=== PATIENT | female | born 1940 | race Caucasian/White ===

== ENCOUNTER → 2017-07-16 | Outpatient (CLI) | payer MEDICARE ==
[2017-07-16 11:45] VITALS: BP 113/73; PULSE 60; RESP 16; TEMP 98; BMI 30.4
--- NOTE | 2017-07-16 14:04 | P.HPOB ---
History of Present Illness H&P Date: 07/16/17 Chief Complaint: The patient is here for her routine gynecologic exam and mammogram. This is a 76-year-old with an LMP of 1998. The patient is without gynecologic complaints and denies any postmenopausal bleeding. Review of Systems The patient has lost about 6 pounds over the last year. She denies respiratory , cardiac, or G.I. problems. She denies maltreatment or falling. : she has occasional slight urinary leakage with coughing or sneezing. Past Medical History Past Medical History: Atrial Fibrillation, Hyperlipidemia Additional Past Medical History / Comment(s): History of multiple brain aneurysms in a status post multiple surgeries for this. Also history of arthritis and osteoporosis. She has used multiple medications including Fosamax , Forteo and Reclast for the osteoporosis over a number of years. 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 Additional Past Surgical History / Comment(s): Aneurysm repair times four. colonoscopy in 2006 and this was her 2nd one. "Amulet" filter placed for CVA prevention 05/2017. Past Psychological History: No Psychological Hx Reported Smoking Status: Former smoker (Quit 2006.) Past Alcohol Use History: Occasional (About 4 per week) Past Drug Use History: None Reported Additional History: She has been a since 2006 and is not sexually active. - Past Family History Mother Family Medical History: Diabetes Mellitus Father Family Medical History: Cancer (Prostate) Additional Family Medical History / Comment(s): He paternal uncle had colon cancer and a paternal aunt had breast cancer. Medications and Allergies Home Medications Medication Instructions Recorded Confirmed Type Aspirin [Adult Low Dose Aspirin EC] 81 mg PO DAILY 07/16/17 07/16/17 History Julian/D3/Mag11/Zinc/Therapist Physical/Elieser/Bor 1 each PO DAILY 07/16/17 07/16/17 History [Caltrate 600+D Plus Tablet] Calcium Carbonate/Vitamin D3 1 each PO DAILY 07/16/17 07/16/17 History [Caltrate 600 Plus D3 Tablet] Clopidogrel [Plavix] 75 mg PO DAILY 07/16/17 07/16/17 History Diltiazem HCl [Diltiazem 24Hr ER] 180 mg PO Q24H 07/16/17 07/16/17 History Lisinopril [Zestril] 5 mg PO DAILY 07/16/17 07/16/17 History Magnesium 250 mg PO DAILY 07/16/17 07/16/17 History Metoprolol Succinate [Toprol Xl] 50 mg PO DAILY 07/16/17 07/16/17 History Simvastatin [Zocor] 10 mg PO DIRECTED 07/16/17 07/16/17 History Sotalol HCl [Sotalol] 40 mg PO DAILY 07/16/17 07/16/17 History Allergies Allergy/AdvReac Type Severity Reaction Status Date / Time codeine AdvReac Abdominal Verified 07/16/17 14:00 Pain Exam - Vital Signs Vital signs: Vital Signs Temp Pulse Resp BP 07/16/17 11:09 98.0 F 60 16 113/73 Intake and Output 07/15/17 07/16/17 07/16/17 22:59 06:59 14:59 Other: Weight 80.286 kg Height 5'4", BMI 30.4. This is a well-developed well-nourished white female who is alert and oriented times 3 in no acute distress. HEENT: Within normal limits. NECK: Supple without mass or thyromegaly. There are no carotid bruits to auscultation. CHEST AND LUNGS: Clear to auscultation. HEART: Regular rate and rhythm. BREASTS: Are without mass or discharge. AXILLARY EXAM: Negative for adenopathy. BACK: Negative for CVA tenderness. ABDOMEN: Soft, nontender, without palpable masses. PELVIC EXAM: Normal external genitalia with mild to moderate atrophy. Cervix and vagina appear normal to moderate atrophy. There is no unusual discharge. There is no evidence of prolapse. The uterus is midposition, nongravid size and nontender. There are no palpable adnexal masses or tenderness. RECTAL EXAM: divisional exam is negative for mass or tenderness and is negative for occult blood. EXTREMITIES: Nontender. IMPRESSION: 1. 76-year-old menopausal female with normal gynecologic exam. 2. History of osteoporosis status post multiple years of medical treatment with bisphosphonates and Forteo in the past. PLAN: 1. Pap smear was performed. 2. Self breast awareness was discussed. 3. Screening mammogram will be done today. 4. Osteoporosis management was discussed. We will plan on repeating her bone density test in one year. 5. I've recommended screening colonoscopy since it is been about 11 years since her last one. Dr. Noé Hernandez's card was given to the patient since her surgeon who did her previous colonoscopy has retired. 6. She will return in one year.
--- NOTE | 2017-07-18 11:42 | MM ---
Reason for exam: screening (asymptomatic). Last mammogram was performed 1 year and 4 months ago. History: Patient is postmenopausal. Family history of breast cancer in maternal aunt at age 65 and breast cancer in paternal aunt at age 45. Took hormonal contraceptives for 10 years beginning at age 32. Took estrogen for 6 months beginning at age 56. Took progesterone for 6 months beginning at age 56. Physical Findings: A clinical breast exam by your physician is recommended on an annual basis and results should be correlated with mammographic findings. MG 3D Screening Mammo W/Cad Bilateral CC and MLO view(s) were taken. Prior study comparison: March 27, 2016, bilateral MG 3d screening mammo w/cad. January 24, 2015, bilateral MG screening mammo w CAD. There is chronic nodularity in the right breast. No significant changes when compared with prior studies. ASSESSMENT: Negative, BI-RAD 1 RECOMMENDATION: Routine screening mammogram of both breasts in 1 year.
== END | disposition home or self-care (01) ==
LOC: WWCWWP 10:42
PROVIDERS: ATTEND Obstetrics & Gynecology
DX: Z12.31 Encounter for screening mammogram for malignant neoplasm of breast (principal)
CPT/HCPCS: 77063; 77067

== ENCOUNTER → 2019-01-13 | Outpatient (CLI) | payer MEDICARE ==
[2019-01-13 09:39] VITALS: BP 155/74; PULSE 60; RESP 16; TEMP 98; BMI 29.7
--- NOTE | 2019-01-13 10:29 | P.HPOB ---
History of Present Illness H&P Date: 01/13/19 Chief Complaint: The patient is here for her routine gynecologic exam and ma mmogram. This is a 78-year-old with an LMP of 1998. The patient is without gynecologic complaints and denies any postmenopausal bleeding. Review of Systems She has gained about 3 pounds over the last year. She denies respiratory, cardiac and G.I. problems. She denies maltreatment or problems with falling. : Occasional leakage with coughing or sneezing and she does wear a pad. Past Medical History Past Medical History: Atrial Fibrillation, Hyperlipidemia, Hypertension Additional Past Medical History / Comment(s): Multiple brain aneurysms in a status post multiple surgeries for this. In "Amulet" filter study to prevent CVA without anticoag for A-fib. Also history of arthritis and osteoporosis(used multiple medications including Fosamax, Forteo and Reclast for the osteoporosis over 5 years.). 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 History of Any Multi-Drug Resistant Organisms: None Reported Additional Past Surgical History / Comment(s): Aneurysm repair times four. colonoscopy in 2006 and this was her 2nd one. "Amulet" filter placed for CVA prevention 05/2017. Colonoscopy 2006(2nd). Past Psychological History: No Psychological Hx Reported Smoking Status: Former smoker Past Alcohol Use History: Occasional (3 per week) Additional Past Alcohol Use History / Comment(s): Quit smoking 2006. Past Drug Use History: None Reported Additional History: She has been a since 2006 and is not sexually active. - Past Family History Mother Family Medical History: Diabetes Mellitus Father Family Medical History: Cancer Additional Family Medical History / Comment(s): Prostate cancer. He paternal uncle had colon cancer and a paternal aunt had breast cancer. Medications and Allergies Home Medications Medication Instructions Recorded Confirmed Type Aspirin [Adult Low Dose Aspirin EC] 81 mg PO DAILY 07/16/17 01/13/19 History Julian/D3/Mag11/Zinc/Welfare Officer/Elieser/Bor 1 each PO DAILY 07/16/17 01/13/19 History [Caltrate 600+D Plus Tablet] Calcium Carbonate/Vitamin D3 1 each PO DAILY 07/16/17 01/13/19 History [Caltrate 600 Plus D3 Tablet] Diltiazem HCl [Diltiazem 24Hr ER] 180 mg PO Q24H 07/16/17 01/13/19 History Magnesium 250 mg PO DAILY 07/16/17 01/13/19 History Sotalol HCl [Sotalol] 40 mg PO DAILY 07/16/17 01/13/19 History Losartan [Cozaar] 25 mg PO DAILY 01/13/19 01/13/19 History Rosuvastatin [Crestor] 10 mg PO DAILY 01/13/19 01/13/19 History Allergies Allergy/AdvReac Type Severity Reaction Status Date / Time codeine AdvReac Abdominal Verified 01/13/19 09:12 Pain Exam Vital Signs Temp Pulse Resp BP Pulse Ox 01/13/19 09:16 98 F 60 16 155/74 98 Intake and Output 01/12/19 01/13/19 01/13/19 22:59 06:59 14:59 Other: Weight 78.471 kg Height 5 feet 4 inches, weight 173 pounds, BMI 29.7. This is a well-developed well-nourished white female who is alert and oriented times 3 in no acute distress. HEENT: Within normal limits. NECK: Supple without mass or thyromegaly. CHEST AND LUNGS: Clear to auscultation. HEART: Regular rate and rhythm. BREASTS: Are without mass or discharge. AXILLARY EXAM: Negative for adenopathy. BACK: Negative for CVA tenderness. ABDOMEN: Soft, nontender, without palpable masses. PELVIC EXAM: Normal external genitalia with moderate atrophy. Cervix and vagina appear normal moderate atrophy. There is no unusual discharge. There is no evidence of prolapse. The uterus is midposition, nongravid size and nontender. There are no palpable adnexal masses or tenderness. RECTAL EXAM: Rectovaginal exam is negative for mass or tenderness and is negative for occult blood. EXTREMITIES: Nontender. IMPRESSION: 1. 78-year-old menopausal female with normal gynecologic exam. 2. History of osteoporosis status post greater than 5 years use of multiple medical treatments including bisphosphonates and Forteo in the past. PLAN: 1. Pap smears have been discontinued since she is considered low risk. She has had documented adequate screening with no history of cervical problems. 2. Self breast awareness was discussed with the patient. 3. Screening mammogram will be done today. 4. Osteoporosis management was discussed. I have stressed the importance of adequate calcium, vitamin D and regular exercise. Recommended amounts of calcium and vitamin D were also discussed. Bone density testing will be done today. 5. I have recommended screening colonoscopy since it has been more than 10 years. 6. The patient plans on getting a flu shot in the near future. 7. The patient was advised to return in 1-2 years for her well woman examination.
--- NOTE | 2019-01-13 12:34 | BD ---
EXAMINATION TYPE: Axial Bone Density DATE OF EXAM: 01/13/2019 COMPARISON: 03/27/2016 CLINICAL HISTORY: Z 78.0 Height: 62 IN Weight: 170 LBS FRAX RISK QUESTIONS: Secondary Osteoporosis: 3. Menopause before 45: AGE 47 RISK FACTORS HISTORY OF: Family History of Osteoporosis: GRANDMOTHER(M), AUNT(M) Active: YES Postmenopausal woman: AGE 47 Take estrogen and/or progesterone medications: NOT NOW How long: AGE 47 - 49 Lost more than 2 inches in height since high school: YES 3" MEDICATIONS: Osteoporosis Medications: NOT NOW Which medication: Actonel FORTEO How Lon YEARS Additional Medications: CALCIUM, VIT D, DILTIAZEM, SOTALOL, ROSUVASTATIN, LOSARTAN, ASPIRIN, CLATRATE EXAM MEASUREMENTS: Bone mineral densitometry was performed using the [employer] System. Bone mineral density as measured about the Lumbar spine is: ----- L1-L4(G/cm2): 0.948 T Score Values are as follows: ----- L2: -3.1 ----- L3: -1.4 ----- L4: -1.1 ----- L1-L4: -1.9 Bone mineral density has: Increased 3.7% since study of: 03/27/2016 Bone mineral density about the R hip (g/cm2): 0.674 Bone mineral density about the L hip (g/cm2): 0.732 T Score values are as follows: -----R Neck: -2.6 -----L Neck: -2.2 -----R Total: -1.9 -----L Total: -1.7 Bone mineral density has: Decreased -2.8% since study of: 03/27/2016 IMPRESSION: Osteoporosis (T Score less than -2.5). There is increased fracture risk and therapy is usually indicated based on age. Re-Screen 1-2 years. NOTE: T-SCORE=SD OF THE YOUNG ADULT MEAN.
--- NOTE | 2019-01-14 10:58 | MM ---
Reason for exam: screening (asymptomatic). Last mammogram was performed 1 year and 6 months ago. History: Patient is postmenopausal. Family history of breast cancer in maternal aunt at age 65 and breast cancer in paternal aunt at age 45. Took hormonal contraceptives for 10 years beginning at age 32. Took estrogen for 6 months beginning at age 56. Took progesterone for 6 months beginning at age 56. Physical Findings: A clinical breast exam by your physician is recommended on an annual basis and results should be correlated with mammographic findings. MG 3D Screening Mammo W/Cad Bilateral CC, MLO, and XCCL view(s) were taken. Prior study comparison: July 16, 2017, bilateral MG 3d screening mammo w/cad. March 27, 2016, bilateral MG 3d screening mammo w/cad. There are scattered fibroglandular densities. There is chronic nodularity bilaterally. There is no discrete abnormality. ASSESSMENT: Negative, BI-RAD 1 RECOMMENDATION: Routine screening mammogram of both breasts in 1 year.
--- NOTE | 2019-01-19 09:16 | P.PN ---
Progress Note - Text Progress Note Date: 01/19/19 OUTPATIENT FOLLOW-UP NOTE TEST(S)/RESULTS: Bone density test done on 01/13/2019 showed stable os teoporosis. METHOD OF NOTIFICATION: The patient was notified by phone. PATIENT COMMENTS: She is planning to start taking vitamin D. DIAGNOSIS: Stable osteoporosis. DISCUSSION: The patient has previously been on medications for her bones including Fosamax, Reclast and Forteo for more than 5 years. I have stressed the importance of adequate calcium, vitamin D and regular exercise. She will continue to stay off of medications for her bones at this time. PLAN: Repeat bone density testing in 2-3 years. The patient was advised to return in 1-2 years for her well woman examination.
== END ==
LOC: WWCWWP 09:01
PROVIDERS: ATTEND Obstetrics & Gynecology
DX: Z12.31 Encounter for screening mammogram for malignant neoplasm of breast (principal); M81.0 Age-related osteoporosis without current pathological fracture; Z78.0 Asymptomatic menopausal state
CPT/HCPCS: 77063; 77067; 77080